=== PATIENT | male | born 1990 | race Caucasian/White ===

== ENCOUNTER 2019-02-24 18:04 | Inpatient (IN) | payer OTHER ==
[~2019-02-24] VITALS: Ht 182.9 cm; Wt 85.9 kg
[2019-02-24] VITALS (113 sets, daily range): BP systolic 108–118; BP diastolic 56–66; PULSE 74–89; TEMP 98.4; O2SAT 94–100
[2019-02-24 19:22] LABS: BASO % 0.3 % (0.0-2.0); EOS # 0.4 (0.0-0.7); EOS % 3.9 % (0-4.0); GRAN # 5.6 (1.4-6.5); GRAN % 59.5 % (42.2-75.2); HEMATOCRIT 45.8 % (42.0-52.0); HEMOGLOBIN 15.2 g/dl (13.5-18.0); LYMPH # 2.6 (1.2-3.4); LYMPH % 27.7 % (20.0-51.0); MEAN CELL VOLUME 92 fl (80.0-100.0); MEAN CORPUSCULAR HEMOGLOBIN 30 pg (27.0-31.0); MEAN CORPUSCULAR HGB CONC 33 g/dl (33.0-37.0); MONO # 0.8 (0.1-0.6); MONO % 8.4 % (1.7-9.3); PLATELET COUNT 174 K/mm3 (130-400); REDCELL DISTRIBUTION WIDTH-CV 12.9 % (11.5-14.5)
[2019-02-24 19:35] LABS: ALANINE AMINOTRANSFERASE 37 U/L (21-72); ALBUMIN 3.9 gm/dL (3.5-5.0); ALKALINE PHOSPHATASE 59 U/L (50-136); ANION GAP 9 mmol/L (7-16); AST,SGOT 28 U/L (15-37); BILIRUBIN,TOTAL 0.2 mg/dL (0.0-1.0); BLOOD UREA NITROGEN 13 mg/dL (9-20); CALCIUM 8.4 mg/dL (8.4-10.2); CARBON DIOXIDE 30 mmol/L (22-30); CHLORIDE 106 mmol/L (98-107); CREATININE, serum 1.21 (0.66-1.25); GLUCOSE 89 mg/dL (74-106); POTASSIUM 4.3 mmol/L (3.4-5.0); SODIUM 144 mmol/L (137-145); TOTAL PROTEIN 6.4 gm/dL (6.4-8.2)
[2019-02-24 19:50] LABS: TROPONIN-I < 0.012 ng/mL (0.000-0.035)
[2019-02-24 22:30] LABS: TRICYCLIC ANTIDEPRESS URINE NEGATIVE
[2019-02-25] VITALS (409 sets, daily range): BP systolic 111–126; BP diastolic 58–66; PULSE 71–90; TEMP 97.8–98.9; O2SAT 96–100
[2019-02-25 08:15] LABS: HEMATOCRIT 48.1 % (42.0-52.0); HEMOGLOBIN 16.1 g/dl (13.5-18.0); MEAN CELL VOLUME 91 fl (80.0-100.0); MEAN CORPUSCULAR HEMOGLOBIN 30 pg (27.0-31.0); MEAN CORPUSCULAR HGB CONC 34 g/dl (33.0-37.0); MEAN PLATELET VOLUME 10.2 fl (7.4-10.4); PLATELET COUNT 178 K/mm3 (130-400); RED BLOOD COUNT 5.29 M/mm3 (4.20-5.60); REDCELL DISTRIBUTION WIDTH-CV 12.9 % (11.5-14.5)
[2019-02-25 08:26] LABS: ANION GAP 7 mmol/L (7-16); BLOOD UREA NITROGEN 14 mg/dL (9-20); CALCIUM 8.6 mg/dL (8.4-10.2); CARBON DIOXIDE 27 mmol/L (22-30); CHLORIDE 106 mmol/L (98-107); CREATININE, serum 1.11 (0.66-1.25); GLUCOSE 94 mg/dL (74-106); POTASSIUM 4.1 mmol/L (3.4-5.0); SODIUM 140 mmol/L (137-145)
[2019-02-25 08:37] LABS: TROPONIN-I < 0.012 ng/mL (0.000-0.035)
== END 2019-02-25 11:05 | disposition home or self-care (01) | DRG 918 ==
LOC: MEDICAL 18:04 → ICU 18:43
PROVIDERS: Student in an Organized Health Care Education/Training Program; ADMIT Student in an Organized Health Care Education/Training Program
DX: T43.611A Poisoning by caffeine, accidental (unintentional), initial encounter (principal); I48.91 Unspecified atrial fibrillation; T50.991A Poisoning by other drugs, medicaments and biological substances, accidental (unintentional), initial encounter; G47.00 Insomnia, unspecified
CPT/HCPCS: 99238; J1650

== ENCOUNTER → 2020-05-18 | Outpatient (CLI) | payer OTHER | LOC: COL.RAD 07:44 | DX: R10.13 Epigastric pain (principal); R68.81 Early satiety | CPT/HCPCS: A9541 ==